=== PATIENT | male | born 1985 | race Caucasian/White ===

== ENCOUNTER 2017-01-24 19:54 | Emergency (ER) | payer MEDICAID ==
[~2017-01-24] VITALS: Ht 190.5 cm; Wt 127.0 kg
[~2017-01-24 19:54] MED LIST: CLIN150 PO; IBUP800T23 PO; OXYC1SOL5 PO
[2017-01-24 19:58] VITALS: BP 192/95; PULSE 112; RESP 18; TEMP 98.6; O2SAT 96
[2017-01-24 20:26] VITALS: BP 141/86; PULSE 101; RESP 16; TEMP 97.9; O2SAT 96
[2017-01-24] MEDS ORDERED: TETANUS/DIPHTHERIA TOXOID ADULT 0.5 ML VIAL IM ONE (20:30)
[2017-01-24] MEDS ORDERED: LIDOCAINE 1%/EPINEPHrine 1:100,000 SOLN 20 ML VIAL INFIL ONE (20:30)
--- NOTE | 2017-01-24 20:57 | PD ---
HPI Chief Complaint: Laceration/Skin Injury Time Seen by Provider: 20:30 Travel History International Travel<30 days: No Contact w/Intl Traveler<30days: No Traveled to known affect area: No History of Present Illness HPI Patient is a 31-year-old male presenting to the emergency department for evaluation of the laceration. Patient was cutting a piece a hose when he slipped and sustained a laceration to the left anterior forearm. Patient reports his pain is an 8 out of 10, he states it's throbbing. His tetanus vaccine is not up-to-date. He has no other injuries to report. On arrival patient appeared as if he was going to pass out from the blood loss. Patient did not pass out. PFSH Past Medical History Bipolar Disorder: Yes Anxiety: Yes Depression: Yes Psychiatric: Yes Tetanus Vaccination: Unknown Past Surgical History Abdominal Surgery: Yes Social History Alcohol Use: Yes Tobacco Use: Yes (02/23- PPD) Substance Use: No Allergies-Medications (Allergen,Severity, Reaction): Coded Allergies: *MDRO Multi-Drug Resistant Organism (Verified Adverse Reaction, Unknown, 01/24/17) MRSA (fluid) - 08/31/15 Reported Meds & Prescriptions Reported Meds & Active Scripts Active No Active Prescriptions or Reported Medications Review of Systems Except as stated in HPI: all other systems reviewed are Neg Skin: Positive Other (laceration) Neurologic: Positive: Dizziness Physical Exam Narrative GENERAL: Well-developed, well-nourished, alert male. Resting comfortably in no acute distress. SKIN: Warm and dry. 3 cm superficial laceration to his left anterior forearm, base of wound is well visualized, no foreign body noted, no muscle or tendon involvement. HEAD: Atraumatic. Normocephalic. EYES: Pupils equal and round. No scleral icterus. No injection or drainage. ENT: No nasal bleeding or discharge. Mucous membranes pink and moist. NECK: Trachea midline. No JVD. CARDIOVASCULAR: Regular rate and rhythm. RESPIRATORY: No accessory muscle use. Clear to auscultation. Breath sounds equal bilaterally. GASTROINTESTINAL: Abdomen soft, non-tender, nondistended. Hepatic and splenic margins not palpable. MUSCULOSKELETAL: Extremities without clubbing, cyanosis, or edema. No obvious deformities. Full range of motion in left wrist and hand. 2+ radial pulse, brisk and less than 3 second capillary refill. NEUROLOGICAL: Awake and alert. No obvious cranial nerve deficits. Motor grossly within normal limits. Five out of 5 muscle strength in the arms and legs. Normal speech. PSYCHIATRIC: Appropriate mood and affect; insight and judgment normal. Data Data Last Documented VS Vital Signs Date Time Temp Pulse Resp B/P (MAP) Pulse Ox O2 Delivery O2 Flow Rate FiO2 01/24/17 20:26 97.9 101 16 141/86 (104) 96 Orders Orders Lidocai-Epi 1%-1:100,000 Inj (Xylocaine- (01/24/17 20:30) Tetanus/Diphtheria Tox Adult (Tetanus/Di (01/24/17 20:30) MDM Medical Decision Making Medical Screen Exam Complete: Yes Emergency Medical Condition: Yes Interpretation(s) Vital Signs Date Time Temp Pulse Resp B/P (MAP) Pulse Ox O2 Delivery O2 Flow Rate FiO2 01/24/17 20:26 97.9 101 16 141/86 (104) 96 01/24/17 19:58 98.6 112 18 192/95 (127) 96 Differential Diagnosis Laceration versus tendon injury versus bleed versus other Narrative Course Patient is a 31-year-old male presented for evaluation of a laceration that he sustained just prior to arrival. Patient is neurovascularly intact. Wound is superficial, base of wound is well visualized. See procedure report for laceration repair. Patient's tetanus vaccine was updated in the emergency department. He was encouraged to keep sutures dry for 24 hours, he may shower after that, he was advised to avoid submerging his arm in water. He was advised that sutures to come out in 7-10 days. He can return to emergency department or follow-up with his primary doctor at the [facility] in [place]. Patient verbalized understanding of these instructions. Patient is stable for discharge. Procedures Procedure Narrative LACERATION LOCATION: Left anterior forearm LENGTH: 3 cm NUMBER OF STITCHES/ALLY: 6 stitches REPAIR: The area of the laceration was prepped with Betadine and sterilely draped. The laceration was infiltrated with 1% lidocaine. The wound was copiously irrigated and explored without evidence of foreign body, tendon injury or neurovascular injury. The wound was closed using 4-0 Prolene. This was a 1 layer repair. A sterile dressing was applied. The patient was advised to keep the dressing clean and dry. Patient tolerated the procedure well. Diagnosis Primary Impression: Laceration of arm Qualified Codes: S41.112A - Laceration without foreign body of left upper arm , initial encounter Additional Impression: Tetanus toxoid vaccination administered at current visit Referrals: [facility] 1 week Patient Instructions: Care For Your Stitches (ED), General Instructions, Laceration (ED) Additional Instructions: Follow-up with your primary doctor at the [facility] in [place] Keep stitches dry for 24 hours, you may shower after that. Do not submerge your arm in water until wound is completely healed. Keep stitches covered with nonocclusive dressing if there is a chance of soiling Sutures will need to be removed in 7-10 days Return to emergency department immediately for any new or worsening symptoms He may take [id number] acetaminophen or ibuprofen as needed and as directed for pain Med/Other Pt SpecificInfo: No Change to Meds Scripts No Active Prescriptions or Reported Meds Disposition: 01 DISCHARGE HOME Condition: Stable Marichuy Trevizo [facility] Jan 24, 2017 20:57
== END 2017-01-24 21:25 | disposition home or self-care (01) ==
LOC: NEPE 19:54
DX: S51.812A Laceration without foreign body of left forearm, initial encounter (principal); R42 Dizziness and giddiness; F31.9 Bipolar disorder, unspecified; F41.9 Anxiety disorder, unspecified; F17.200 Nicotine dependence, unspecified, uncomplicated; W26.0XXA Contact with knife, initial encounter
CPT/HCPCS: 12002; 90471